=== PATIENT | female | born 1970 | race Caucasian/White ===

== ENCOUNTER 2019-05-16 06:54 | Day surgery (SDC) | payer OTHER, SELFPAY ==
--- NOTE | 2019-05-16 | COLBX_PTH ---
PATIENT: UZMA SANDHU LOC: EN U#:[id number] AGE/SX: 48/F ROOM: RE05/16/[address]: Dr. Massiel De MD : 1970 BED: DIS: 05/16/2019 SPEC #: [id number] RECD: 05/16/19 13:51 STATUS: TORY CALOSTania #: [id number] FLORENCIO: 05/16/19 00:[address]: Massiel De DEPT: SURGICAL PATHOLOGY RECD BY: Fortino Lama ENTERED: 05/16/19 13:52 SP TYPE: COLON BX OTHR DR: Dr. Titus Gifford, DO Tissues: Rectum, NOS Procedures: Surgery Specimen Level IV HEADER OPERATION: Colonoscopy - open access (MAC) PRE-OP DIAGNOSIS: Screening TISSUE SUBMITTED: Rectal polyp MICROSCOPIC DIAGNOSIS Rectal polyp, biopsy: A polypoid fragment of colonic mucosa with focal hyperplastic changes. SJ:deric 05/17/19 MICROSCOPIC DESCRIPTION Slides are reviewed. GROSS DESCRIPTION Received in fixative is one container labeled with the patient's name and designated rectal polyp. The specimen consists of one irregular fragment of light charles soft tissue that measures 0.4 x 0.3 x 0.1 cm. The specimen is totally submitted in one cassette. / SJ:rg 05/16/19 TC:5 CPT: 86826
[2019-05-16 07:17] VITALS: BP 86/48; PULSE 80; RESP 16; TEMP 36.6; O2SAT 99; BMI 25.3
[2019-05-16] MEDS: Lactated Ringers 1,000 ML 100 ML IV (07:33)
--- NOTE | 2019-05-16 07:59 | HP.PCM_ITS ---
History of Present Illness Date of Admission: 05/16/19 The patient is a 48 year old F presents for screening colonoscopy, patient is never had a previous colonoscopy. Patient denies abdominal pain nausea/vomiting. Patient has bowel movements daily denies any blood. Patient's maternal grandmother may have had colon cancer but she was in her 80s. Otherwise no, history of colon cancer. Past Medical/Surgical History - Planned Operation Planned Operative Procedure/s: colonoscopy Date of Operative Procedure: 05/16/19 Permit Signed: No S.O.S: No Is This Patient Having a Total Joint: No - Previous Hospitalizations/Surgeries HX Hospitalizations: No HX of Surgeries: na Any Problems With Anesthesia: No You/Your Family Experience Fever (Hyperthermia) With Anes: No Cholinesterase deficiency: No - Cardiovascular Hx Chest Pain within Last 2 months: No Hx of Irregular Heartbeat and/or Afib: No Hx Heart Attack: No Hx Congestive Heart Failure: No Hx Rheumatic Fever: No Hx Hypertension: No Hx Internal Defibrillator: No Hx Pacemaker: No Hx Cardiac Catheterization: No Hx Cardiac Surgery/Stents/Etc.: No Hx Stress Test: Yes - 2013 echo/stress. states neg HX Edema: No Hx Pain in Legs when Walking/Leg Cramps: No - Respiratory Chronic Cough: No HX of Shortness of Breath: No - denies Hoarseness: No Hx Chronic Obstructive Pulmonary Disease (COPD): No Hx Asthma: No Hx Emphysema: No Hx Sleep Apnea: No Hx Oxygen Use at Home: No Hx Respiratory Tract Infection/Cold (presently): No Do You Snore Loudly (louder than talking or can be heard): Yes Do You Often Feel Tired/ Fatigued/ Sleepy Dring Daytime?: Yes Has Anyone Observed You Stop Breathing During Sleep?: No Result (for STOP score): Positive Hx Smoking: Yes - 1/2 ppd x 20 + yrs/ off and on Smoking Status: Current some day smoker - Gastrointestinal Hx Gastroesophageal Reflux: No Hx Gastrointestinal Disorders: No Hx Gastrointestinal Bleed: No Hx Ulcer: No Hx Hiatal Hernia: No Difficulty Chewing/Swallowing: No Recent Onset of Swallowing Problems: No Special diet followed at home: No Hx Unplanned Weight Loss of 20#: No HX Unplanned Weight Gain of 20#: No - Neurological Hx Seizures: No HX Syncope/Blackout Spells/Unconsciousness: Yes - per hx,not recent. had testing Hx CVA/Stroke: No Hx Transient Ischemic Attacks (TIA): No Hx Multiple Sclerosis: No Hx Parkinson's Disease: No Hx Head/Neck Injury: Yes - neck pain/ concussions as child Hx Headaches: Yes - migraines Hx Back Injury/Pain: No Recent Onset of Speech Difficulty: No Restless Legs: No Does patient have nerve stimulator: No Patient instructed to have device shut off: No Rep notified?: No - Blood Disorder Hx Leukemia: No Bleeding Tendencies: No Hx Deep Vein Thrombosis: No Hx High Cholesterol: No Blood Transmitted Disease: No Hx Hepatitis: No Hx Cirrhosis: No Hx Anemia: No Hx Blood Disorders: No - Reproduction : No Is Patient Lactating: No Hx Hysterectomy: No Hx Tubal Ligation: No Are You Post Menopause: Yes - Genitourinary Hx Renal Disease: No - Musculoskeletal Hx Arthritis: No Hx Rheumatoid Arthritis: No Hx Gout: No Recent Onset of an Orthopedic Problem: Yes - rt elbow - Endocrine Hx Diabetes: No Thyroid Disease: No Hx Steroid Therapy: No - Psycho/Social Hx Substance Use: No Hx Alcohol Use: Yes - rare Hx Anxiety: No Hx Depression: No Mental Illness: No Hx Dementia: No - Miscellaneous Hx Cancer: No Recent Exposure to Contagious Disease: No Active MRSA: No Hx of C-Diff: No Any Loose Teeth: No Allergies No Known Allergies Allergy (Verified 05/16/19 07:16) - Discharge Is Pt Admitted From a Group Home, or a Custodial: No Who Could Help: After D/C, Where Do you Plan to Go: Return Home - Physical Exam General: Alert, Oriented x3, Cooperative, No apparent distress HEENT: Atraumatic Lungs: Clear to auscultation Cardiovascular: Regular rate Abdomen: Soft, Non Tender, Non-Distended Extremities: No clubbing, No cyanosis, No edema Neurological: Cranial nerves II-XII grossly intact Psych/Mental Status: Normal Affect Vital Signs Temp Pulse Resp BP Pulse Ox 97.8 F 80 16 86/48 L 99 05/16/19 07:17 05/16/19 07:17 05/16/19 07:17 05/16/19 07:17 05/16/19 07:17 Oxygen Delivery Method Room Air Weight: 161 lb 13.109 oz Body Mass Index (BMI) 25.3 Assessment/Plan All Active Problems (Last Updated 10/01/18 @ 15:23 by Karina Geller) Hemorrhoids (Acute) 48-year-old female for screening for colon cancer Surgery Risks - Colonoscopy I discussed with the patient the risks of the procedure: Yes Risks Include but are not Limited To: Risks include but are not limited to: Bleeding, perforation requiring further surgery, inability to complete colonoscopy requiring barium enema. Patient no further questions this time.
[2019-05-16 08:30] VITALS: BP 86/48; BP 91/62; PULSE 81; RESP 18; TEMP 36.7; O2SAT 99
[2019-05-16 08:35] VITALS: BP 80/64; BP 86/48; PULSE 91; RESP 17; O2SAT 100
[2019-05-16 08:40] VITALS: BP 86/48; BP 98/62; PULSE 79; RESP 17; O2SAT 100
[2019-05-16 08:45] VITALS: BP 102/70; BP 86/48; PULSE 74; RESP 16; TEMP 36.3; O2SAT 100
[2019-05-16 08:58] VITALS: BP 86/48
--- NOTE | 2019-05-17 12:00 | OP.ENDO_ITS ---
05/17/2019 Rossana Gifford Do Re : Colonoscopy procedure for Margo Cage Dear Balta This procedure was performed on Thursday, May 16, 2019. My impressions and recommendations are as follows: Impressions : - Hemorrhoids found on perianal exam. - One less than 5 mm polyp in the rectum, removed with a hot snare. Resected and retrieved. - External-residual tissue and internal hemorrhoids. - The examination was otherwise normal. Recommendations : - Discharge patient to home. - Resume previous diet. - Continue present medications. - Await pathology results. - Repeat colonoscopy in 3 - 5 years for surveillance based on pathology results. My findings are described in the full procedure note, which is enclosed. If I can be of further assistance, please feel free to contact me at Doctor phone number(s): , Work: . Sincerely, MD Massiel Morfin MD 05/16/2019 8:34:58 AM This report has been signed electronically.
== END 2019-05-16 09:15 | disposition home or self-care (01) ==
LOC: EN 06:55 → AC 06:57
PROVIDERS: Family Provider Family Medicine; PCP Family Medicine; Referring Provider Family Medicine; Visit Provider Surgery
PROC: 0DJD8ZZ Inspection of Lower Intestinal Tract, Via Natural or Artificial Opening Endoscopic (ICD-10-PCS; CPT 45378; principal; 2019-05-16 07:55)
DX: Z12.11 Encounter for screening for malignant neoplasm of colon (principal); K64.0 First degree hemorrhoids; K62.1 Rectal polyp; G43.909 Migraine, unspecified, not intractable, without status migrainosus; F17.200 Nicotine dependence, unspecified, uncomplicated
CPT/HCPCS: 45385; 88305; J7120

== ENCOUNTER → 2020-05-19 14:28 | Outpatient (CLI) | payer OTHER, SELFPAY ==
--- NOTE | 2020-05-19 14:32 | US_ITS ---
STUDY: ULTRASOUND OF THE FEMALE PELVIS - COMPLETE REASON FOR EXAM: Female, 49 years old. POST MENOPAUSAL BLEEDING LMP: Postmenopausal TECHNIQUE: Transabdominal and Transvaginal TECHNICAL QUALITY: Adequate. COMPARISON: Prior study of 05/19/2020 FINDINGS: The uterus is retroflexed and is tilted to the left side of the pelvis. The uterus measures 6.7 x 5.5 x 3.7 cm. The endometrium measures 3.4 mm in thickness, and is hyperechoic. There is no demonstrated endometrial mass. There are multiple uterine calcifications most likely representing degenerative fibroids. I.U.D. - The patient does not have an I.U.D. The right ovary is visualized. The right ovary measures 2.3 x 1.5 x 1.6 cm. There is no right ovarian cyst or ovarian mass. There is no visualized right adnexal mass or complex lesion. There is normal arterial and normal venous vascularity. The left ovary is visualized. The left ovary measures 4.2 x 4.2 x 3.2 cm. There is a 3.3 x 3.3 x 3.1 cm left ovarian cyst. There is no visualized left adnexal mass or complex lesion. There is normal arterial and normal venous vascularity. There is a small amount of fluid in the cul-de-sac. The pre void volume of the bladder was 399 ml. Polycystic ovary disease: No. US/Transvaginal Non- IMPRESSION: Uterine calcifications most likely representing degenerative fibroids. Cervical nabothian cyst. 3.3 x 3.3 x 3.1 cm left ovarian cyst. Small amount of fluid in the cul-de-sac. Electronically Signed: Jose Darden MD at 18:03 EDT , Service support ,
--- NOTE | 2020-05-19 14:32 | US_ITS ---
STUDY: ULTRASOUND OF THE FEMALE PELVIS - COMPLETE REASON FOR EXAM: Female, 49 years old. POST MENOPAUSAL BLEEDING LMP: Postmenopausal TECHNIQUE: Transabdominal and Transvaginal TECHNICAL QUALITY: Adequate. COMPARISON: Prior study of 05/19/2020 FINDINGS: The uterus is retroflexed and is tilted to the left side of the pelvis. The uterus measures 6.7 x 5.5 x 3.7 cm. The endometrium measures 3.4 mm in thickness, and is hyperechoic. There is no demonstrated endometrial mass. There are multiple uterine calcifications most likely representing degenerative fibroids. I.U.D. - The patient does not have an I.U.D. The right ovary is visualized. The right ovary measures 2.3 x 1.5 x 1.6 cm. There is no right ovarian cyst or ovarian mass. There is no visualized right adnexal mass or complex lesion. There is normal arterial and normal venous vascularity. The left ovary is visualized. The left ovary measures 4.2 x 4.2 x 3.2 cm. There is a 3.3 x 3.3 x 3.1 cm left ovarian cyst. There is no visualized left adnexal mass or complex lesion. There is normal arterial and normal venous vascularity. There is a small amount of fluid in the cul-de-sac. The pre void volume of the bladder was 399 ml. Polycystic ovary disease: No. US/Pelvic (Non ) IMPRESSION: Uterine calcifications most likely representing degenerative fibroids. Cervical nabothian cyst. 3.3 x 3.3 x 3.1 cm left ovarian cyst. Small amount of fluid in the cul-de-sac. Electronically Signed: Jose Darden MD at 18:03 EDT , Service support ,
== END ==
PROVIDERS: PCP Family Medicine; Referring Provider Obstetrics & Gynecology; Visit Provider Obstetrics & Gynecology
DX: N95.0 Postmenopausal bleeding (principal)
CPT/HCPCS: 76830; 76856

== ENCOUNTER → 2020-07-22 14:45 | Outpatient (CLI) | payer OTHER, SELFPAY ==
--- NOTE | 2020-07-22 14:59 | US_ITS ---
HISTORY: OVARIAN CYST, FOLLOW-UP COMPARISON: 05/19/2020 TECHNIQUE: Real-time transabdominal sonographic imaging of the pelvis was performed. # of images incl. paperwork: 51 FINDINGS: UTERUS: Uterus measures 7.5 x 3.4 x 5.0cm. Scattered calcifications within the uterus likely represent small calcified myomas with the largest measuring 1.5 cm. ENDOMETRIUM: Endometrium measures default valuemm in thickness. No endometrial fluid. OVARIES: Right ovary measures 3.2 x 1.1 x 2.3 cm; left ovary measures 2.5 x 1.0 x 2.1 cm. Previously demonstrated left ovarian 3.3 cm cyst is no longer present. Doppler color flow is seen to bilateral ovaries. ADNEXA: No adnexal mass or abnormality. FREE FLUID: Trace free fluid surrounding the left ovary. OTHER: Normal appearance of the urinary bladder. US/Pelvic (Non ) IMPRESSION: 1. Interval resolution of previously seen left ovarian 3.3 cm cyst. 2. Trace free fluid surrounding the left ovary. 3. Nonenlarged uterus with small scattered calcifications likely representing myomas. at 1546 Reported and signed by: Ilya Britt MD Electronically Signed: Ilya Britt MD at 15:45 EST Tel , Service support ,
== END ==
LOC: OPUS 14:47 → US 14:54
PROVIDERS: PCP Family Medicine; Referring Provider Advanced Practice Midwife; Visit Provider Advanced Practice Midwife
DX: N83.202 Unspecified ovarian cyst, left side (principal); D72.820 Lymphocytosis (symptomatic)
CPT/HCPCS: 36415; 76856